=== PATIENT | male | born 1950 | race Caucasian/White ===

== ENCOUNTER 2020-10-10 11:15 | Outpatient (CLI) | payer OTHER | END 2020-10-10 11:24 | disposition home or self-care (01) | LOC: TOM 11:15 | PROVIDERS: ATTEND Specialist | DX: N20.0 Calculus of kidney (principal); C61 Malignant neoplasm of prostate; K57.90 Diverticulosis of intestine, part unspecified, without perforation or abscess without bleeding ==

== ENCOUNTER 2020-10-12 08:58 | Outpatient (CLI) | payer OTHER | END 2020-10-12 12:51 | disposition home or self-care (01) | LOC: NUCLEAR 08:58 | PROVIDERS: ATTEND Specialist | DX: C61 Malignant neoplasm of prostate (principal) | CPT/HCPCS: 78306; A9503 ==